=== PATIENT | male | born 1995 | race African-American/Black ===

== ENCOUNTER 2023-03-10 10:36 | Emergency (ER) | payer SELFPAY ==
[~2023-03-10] VITALS: Ht 185.4 cm; Wt 120.6 kg
[2023-03-10] MEDS ORDERED: ACETAMINOPHEN 325 MG TAB PO ONE (10:45)
[2023-03-10 11:34] VITALS: BP 135/91; PULSE 97; RESP 16; O2SAT 98
[2023-03-10 11:36] VITALS: TEMP 99.5
[2023-03-10] MEDS ORDERED: IBUPROFEN 800 MG TAB PO ONE (12:00)
[2023-03-10] MEDS ORDERED: cefTRIAXone SOD 1,000 MG VL IM ONE (12:00)
[2023-03-10] MEDS ORDERED: IBUP-1456 PO (12:11)
[2023-03-10] MEDS ORDERED: AZIT500T66 PO (12:11)
== END 2023-03-10 12:18 | disposition home or self-care (01) ==
LOC: ER 10:36
DX: J03.90 Acute tonsillitis, unspecified (principal); F17.210 Nicotine dependence, cigarettes, uncomplicated
CPT/HCPCS: 71046; 96372; 99283; J0696